=== PATIENT | female | born 1980 | race Caucasian/White ===

== ENCOUNTER 2016-11-17 22:03 | Inpatient (IN) ==
[2016-11-17] MEDS ORDERED: ALUM/MAG/SIMETH/LIDO VISC 1:1 30 ML BOTTLE PO STA (22:48)
[2016-11-17] MEDS ORDERED: SODIUM CHLORIDE 0.9% 500 ML IV STA (22:48)
[2016-11-17] MEDS ORDERED: HYDROmorphone 2 MG/1 ML VIAL IV STA (22:48)
[2016-11-17] MEDS ORDERED: KETOROLAC 30 MG/1 ML VIAL IV STA (22:48)
[2016-11-17] MEDS ORDERED: PANTOPRAZOLE 40 MG VIAL IV STA (22:48)
[2016-11-17] MEDS ORDERED: ONDANSETRON 4 MG/2 ML VIAL IV STA (22:48)
--- NOTE | 2016-11-17 22:52 | Emergency Department Note ---
Kyle Klein Rolonda, am scribing for, and in the presence of, Miah Aggarwal MD 22:50. Alessia Klein Charles R, MD, personally performed the services described in this documentation, ascribed by Benny Wright in my presence, and it is both accurate and complete 252 . Arrival - Arrival Chief Complaint: Abdominal / Flank Pain ED Nursing Triage Note: pt transferred from [facility], [place] for further evaluation of abnormal abdominal ct, possible strangulated hernia, cholelithiasis. 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 Pt states that the pain is more on the right side than left. She confirms having a nml BM and nausea but denies vomiting and having gas. No other complaint/pain in ED. Onset (ago): hour(s) Consistency: constant Severity: mild, moderate Severity scale (1-10): 4 Date of Last Menstrual Period: "2 weeks ago" Allergies/Adverse Reactions: Allergies Allergy/AdvReac Type Severity Reaction Status Date / Time Penicillins Allergy ITCHING Verified 11/17/16 22:10 Home Medications: Home Medications Medication Instructions Recorded Confirmed Type Citalopram [CeleXA] 20 mg PO DAILY 11/17/16 11/17/16 History clonazePAM TAB [KlonoPIN] 0.5 mg PO BID 11/17/16 11/17/16 History Review of System - Review of System 12 point system: reviewed and no additional remarkable complaints except as stated - Review of System Constitutional: Absent: chills Eyes: Absent: discharge Head/Ears/Nose/Throat: Absent: earache Respiratory: Absent: cough Cardiovascular: Absent: chest pain Gastrointestinal: Present: abdominal pain Musculoskeletal: Absent: arm pain Skin: Absent: rash Neurological: Absent: headache Psychiatric: Absent: anxiety Endocrine: Absent: cold intolerance Hematological/Lymphatic: Absent: easy bleeding Allergic/Immunologic: Absent: facial swelling Medical,Surgical,& Family Hx - Medical History Psychological: History of: Anxiety Disorders - Social History Smoking Status: Current every day smoker Frequency of Alcohol Use: None Type of Drug Use: None Exam Vital Signs: Vital Signs Temperature 99.5 F 11/17/16 22:03 Pulse Rate 97 H 11/17/16 22:03 Respiratory Rate 18 11/17/16 22:03 Blood Pressure 121/93 11/17/16 22:03 O2 Sat by Pulse Oximetry 100 11/17/16 22:03 - General General appearance: alert, in no apparent distress - Head Head exam: Present: atraumatic, normocephalic - Eye Eye exam: Present: PERRL, EOMI - ENT ENT exam: Present: mucous membranes moist. Absent: mucous membranes dry - Neck Neck exam: Present: full ROM. Absent: tenderness - Chest Chest inspection: Present: symmetric chest wall rise. Absent: tenderness - Respiratory Respiratory exam: Present: normal lung sounds bilaterally. Absent: wheezes - Cardiovascular Cardiovascular exam: Present: normal rhythm, tachycardia - Abdominal Exam Abdominal exam: Present: soft, tenderness (RUQ; mid abdominal), normal bowel sounds, diminished bowel sounds, Muniz's sign (positive) - Extremities Exam Extremities exam: Present: full ROM. Absent: tenderness - Back Exam Back exam: Present: full ROM. Absent: tenderness - Neurological Exam Neurological exam: Present: alert, oriented X3, CN II-XII intact - Psychiatric Psychiatric exam: Present: normal affect, normal mood - Skin Skin exam: Present: warm, dry, intact, normal color. Absent: rash Course - Consultations Consultation #1: Dr. Gomez will admit patient for acute cholecystitis Time: 23:50 Results - Labs CBC & BMP: 11/17/16 22:48 Lab Results: I have reviewed the patients labs Labs: Laboratory Tests 11/17/16 22:48 WBC 11.9 RBC 4.26 Hgb 13.0 Hct 39.3 - Diagnostic Findings Procedure: Ultrasound: image reviewed by me, report reviewed by me (Acute cholecystitis) Disposition Clinical Impression: Abdominal pain, Ventral wall hernia, Acute cholecystitis Case discussed with: patient, patient's family Disposition: Still a Patient Condition: Stable Time of Disposition: 23:52
--- NOTE | 2016-11-17 23:20 | Order Completion Report ---
See report scanned to EMR
[2016-11-17] MEDS ORDERED: PANTOPRAZOLE 40 MG VIAL IV ONE (23:22)
[2016-11-17] MEDS ORDERED: KETOROLAC 30 MG/1 ML VIAL ONE (23:22)
[2016-11-17] MEDS ORDERED: HYDROmorphone 2 MG/1 ML VIAL ONE (23:22)
[2016-11-17] MEDS ORDERED: ONDANSETRON 4 MG/2 ML VIAL ONE (23:22)
[2016-11-17] MEDS ORDERED: ALUM/MAG/SIMETH/LIDO VISC 1:1 30 ML BOTTLE PO ONE (23:23)
[2016-11-17 23:26] LABS: Basophils # 0.1 10*3/uL (0.0-0.2); Basophils % 0.7 % (0.0-0.8); Eosinophils # 0.3 10*3/uL (0.0-0.87); Eosinophils % 2.4 % (0.00-10.9); Hematocrit 39.3 VOL% (35.7-47.0); Immature Granulocytes % 0.6 %; Immature Granulocytes Absolute 0.07 #; Lymphocytes # 3.6 10*3/uL (1.4-4.0); Lymphocytes % 30.5 % (21.3-54.2); Mean Corpuscular HGB Conc 33.1 GM/DL (32-36); Mean Corpuscular Hemoglobin 31 PG (27-34); Mean Corpuscular Volume 92.3 FL (87-102); Mean Platelet Volume 11.5 FL (9.6-12.0); Monocytes # 0.8 10*3/uL (0.11-0.8); Monocytes % 6.6 % (1.7-12.7); Neutrophils % 59.2 % (38.7-73.9); Platelet Count 247 T/CUMM (130-400); Red Blood Count 4.26 MC/CUMM (3.8-5.5); Red Cell Distribution Width 14.6 % (9.3-17.3); White Blood Count 11.9 T/CUMM (4-12)
[2016-11-17 23:59] LABS: Lactic Acid 0.8 MMOL/L (0.4-2.0)
[2016-11-18 00:01] LABS: Alanine Aminotransferase 18 U/L (13-56); Albumin 3.3 G/DL (3.4-5.0); Alkaline Phosphatase 77 U/L (45-117); Amylase 48 U/L (25-115); Aspartate Amino Transferase 10 U/L (0-37); Bilirubin,Total < 0.39 MG/DL (0.2-1.0); Blood Urea Nitrogen 6 MG/DL (7-18); Calcium 8.7 MG/DL (8.5-10.1); Glucose 79 MG/DL (74-106); Osmolality,Calculated 275.4 MOS/KG (273-304); Potassium 3.8 MMOL/L (3.5-5.1); Sodium 140 MMOL/L (136-145); Total Protein 6.6 G/DL (6.4-8.3); Troponin I Only < 0.015 NG/ML (0.00-0.045)
[2016-11-18] MEDS ORDERED: ACETAMINOPHEN 325 MG TABLET PO PRN (00:50)
[2016-11-18] MEDS: LACTATED RINGERS 1,000 ML IV SCH ×3 (01:35→18:15)
[2016-11-18] MEDS: LEVOFLOXACIN INJ 750 MG in PREMIX 1 EACH IV SCH (01:36)
[2016-11-18] MEDS: ALBUTEROL/IPRATROPIUM 3 ML NEB RESP TX SCH ×4 (01:53→20:01)
[2016-11-18] MEDS: metroNIDAZOLE INJ 500 MG in PREMIX 1 EACH IV SCH ×3 (05:04→21:03)
[2016-11-18 05:38] LABS: Apearance,Urine CLEAR (Clear); Bacteria,Urine Occasional /HPF (Few); Bilirubin,Urine Negative (Negative); Blood, Urine Negative (Negative); Glucose,Urine (UA) Negative (Negative); Ketones,Urine Negative (Negative); Mucus,Urine Occasional /LPF (Occasional); Nitrite,Urine Negative (Negative); Protein,Urine Negative; RBC,Urine <1 /HPF (0-4); Squamous Epithelial Cell,Urine Occasional /HPF (0-10); Urine Color Yellow (Yellow); Urine Specific Gravity 1.035 (1.001-1.035); Urine Urobilinogen < 2.0 EU/DL (0.2-1.0); WBC,Urine <1 /HPF (0-6)
[2016-11-18 06:20] LABS: Basophils # 0.1 10*3/uL (0.0-0.2); Basophils % 0.7 % (0.0-0.8); Eosinophils # 0.2 10*3/uL (0.0-0.87); Eosinophils % 2.3 % (0.00-10.9); Hematocrit 40.9 VOL% (35.7-47.0); Hemoglobin 13.1 GM/DL (12.0-16.0); Immature Granulocytes % 0.8 %; Immature Granulocytes Absolute 0.07 #; Lymphocytes # 3.6 10*3/uL (1.4-4.0); Lymphocytes % 39.2 % (21.3-54.2); Mean Corpuscular Hemoglobin 30 PG (27-34); Mean Corpuscular Volume 93.6 FL (87-102); Mean Platelet Volume 11.5 FL (9.6-12.0); Monocytes # 0.7 10*3/uL (0.11-0.8); Monocytes % 7.3 % (1.7-12.7); Neutrophils # 4.6 10*3/uL (1.4-7.4); Neutrophils % 49.7 % (38.7-73.9); Platelet Count 262 T/CUMM (130-400); Red Blood Count 4.37 MC/CUMM (3.8-5.5); Red Cell Distribution Width 14.6 % (9.3-17.3); White Blood Count 9.2 T/CUMM (4-12)
[2016-11-18] MEDS: HYDROmorphone 2 MG/1 ML VIAL IV PRN ×4 (06:35→22:47)
--- NOTE | 2016-11-18 06:44 | Ultrasound Report ---
Right upper quadrant ultrasound Indication: Abdominal Pain Findings: The liver is normal in size with diffusely increased echogenicity. The gallbladder has multiple calculi present that were mobile. Small amount of sludge is seen. The gallbladder wall thickness is 2.0 mm . The common bile duct measures 4.0 mm. The visualized portion of the pancreas appear within normal limits The right kidney is normal in size and echogenicity and measures 8.7 cm . No free fluid or free air seen. Impression: Cholelithiasis, with slightly thickened gallbladder wall could indicate cholecystitis. No other evidence of abnormality demonstrated. Ultrasound images stored and captured. PROCEDURE INTERPRETED AT [facility] DEPARTMENT OF RADIOLOGY Final Report Signed by: Dr. Manuel Barney
[2016-11-18 07:04] LABS: Albumin 3.1 G/DL (3.4-5.0); Bilirubin,Total 0.6 MG/DL (0.2-1.0); Calcium 8.8 MG/DL (8.5-10.1); Osmolality,Calculated 274.4 MOS/KG (273-304); Potassium 4.5 MMOL/L (3.5-5.1); Total Protein 6.5 G/DL (6.4-8.3)
[2016-11-18] MEDS: ONDANSETRON 4 MG/2 ML VIAL IV PRN ×2 (07:40→18:19)
[2016-11-18] MEDS: PANTOPRAZOLE 40 MG VIAL IV SCH (07:40)
--- NOTE | 2016-11-18 08:23 | General Surg History&Physical ---
Assessment and Plan (1) Acute cholecystitis Status: Acute Assessment and plan: Patient with apparent acute cholecystitis. She has received perioperative IV antibiotics and we recommended proceeding with a laparoscopic cholecystectomy today. All questions were welcomed and answered and the patient agrees to proceed. Current Visit: Yes (2) Ventral hernia Status: Acute Assessment and plan: Patient's current primary symptoms are reflective of the above. Will follow. Current Visit: Yes (3) Constipation Status: Acute Assessment and plan: Patient reports bowel movement this morning. Monitor. Current Visit: Yes (4) Pulmonary nodule Status: Acute Assessment and plan: Incidental finding of pulmonary nodules with recommendation by radiologist for repeat CT scan in 6 months. Current Visit: Yes (5) Nicotine dependence Status: Acute Assessment and plan: Smoking cessation education provided. Risks of continuing tobacco use and health benefits of cessation reviewed. We will provide additional information upon discharge. Current Visit: Yes Qualifiers: Nicotine product type: cigarettes History of Present Illness Chief complaint: Abdominal pain History of present illness: Ms. Child is a 35 year old female to an outside facility yesterday with significant right upper quadrant abdominal pain associated with nausea without vomiting. She reports the pain was severe in the right upper quadrant and persistent prompting her visit; denies associated fever, chills, riders, diarrhea, or urinary symptoms. She reports a history of nausea and milder right upper quadrant pain after fatty meals over the past several months, but she had limited fried foods in her diet to compensate. No previous evaluation. Home Medications Medication Instructions Recorded Confirmed Type Citalopram [CeleXA] 20 mg PO DAILY 11/17/16 11/18/16 History clonazePAM TAB [KlonoPIN] 0.5 mg PO BID 11/17/16 11/18/16 History Allergies Allergy/AdvReac Type Severity Reaction Status Date / Time Penicillins Allergy ITCHING Verified 11/17/16 22:10 Medical,Surgical,& Family Hx - Medical History Psychological: History of: Anxiety Disorders - Surgical History HEENT Surgeries: Surgical HX of: Tonsilectomy & Adenoidectomy Reproductive Surgeries: Surgical HX of;: Section, Tubal Ligation Orthopedic Surgeries: Surgical HX of;: Orthopedic Surgery (shoulder) - Family History Family History: Reports;: Family Heart Disease, Family Hypertension - Social History Smoking Status: Current every day smoker Frequency of Alcohol Use: None Type of Drug Use: None Exam - Constitutional Vitals: Period Temp Pulse Resp BP Sys/Mahmood Pulse Ox Last 24 Hr 97.2 F-99.5 F 80-97 12-20 99-128/75-93 98-100 General appearance: no acute distress, over weight - Head Head exam: Present: atraumatic - Eye Eye exam: Absent: scleral icterus - Neck Neck exam: Present: trachea midline - Respiratory Respiratory exam: Present: clear to auscultation bilaterally - Cardiovascular Cardiovascular exam: Present: RRR - GI/Abdominal GI/Abdominal exam: Present: normal bowel sounds, Muniz's sign, tenderness ( Right upper quadrant tenderness), soft. Absent: firm, guarding - Extremities Exam Extremities exam: Absent: calf tenderness, edema - Neurological Exam Neurological exam: Present: alert, oriented X3 Speech: Present: normal - Skin Skin exam: Present: normal color - Constitutional Constitutional: Present: as per HPI - Cardiovascular Cardiovascular: Absent: chest pain at rest, orthopnea - Respiratory Respiratory: Absent: cough, hemoptysis, wheezing - Gastrointestinal Gastrointestinal: Present: as per HPI - Genitourinary Genitourinary: Absent: dysuria, flank pain Hematologic/Lymphatic: Absent: easy bleeding, easy bruising Quality Measures - VTE Contraindication to Pharmacological VTE Prophylaxis: High Risk of Bleeding Results - Labs CBC & BMP: 11/18/16 05:24 11/18/16 05:24 Lab Results: I have reviewed the past 24 hour labs Labs: LFTs unremarkable Lipase unremarkable Lactic acid unremarkable Troponin unremarkable - EKG EKG results: interpreted by ERMD - Diagnostic Findings Procedure: Abdominal Flat/Erect: image reviewed by me (Results pending this morning), Chest x-ray: image reviewed by me (Results pending this morning), CT Abdomen and Pelvis: image reviewed by me, report reviewed by me (Outside images reviewed independently reviewed by Dr. Gomez; cholelithiasis and gallbladder wall thickening noted; ventral pelvic hernia also noted; pulmonary nodule noted on report from outside facility)
--- NOTE | 2016-11-18 08:44 | XRay Report ---
XR chest 2V Indication: Shortness of breath Comparison: 17 November 2016 Findings: The heart and mediastinum are normal in size and configuration. The pulmonary vascularity is normal in caliber. No lung infiltrates, effusions, pneumothorax or other abnormality is demonstrated. Impression: Normal chest x-ray PROCEDURE INTERPRETED AT [facility] DEPARTMENT OF RADIOLOGY Final Report Signed by: Dr. Manuel Barney
--- NOTE | 2016-11-18 08:45 | XRay Report ---
XR abdomen 2V Indication: Abdominal pain Comparison: None available Findings: No free fluid or free air seen. Increased stool volume is seen in the colon. The bowel gas pattern otherwise appears within normal limits. No abnormal calcifications are present. No other abnormality is identified. Impression: Increased stool volume in the colon, may indicate constipation. PROCEDURE INTERPRETED AT [facility] DEPARTMENT OF RADIOLOGY Final Report Signed by: Dr. Manuel Barney
[2016-11-18] MEDS: clonazePAM 0.5 MG TABLET PO SCH ×2 (13:44→21:02)
[2016-11-18] MEDS: CITALOPRAM 20 MG TABLET PO SCH (13:44)
[2016-11-18] MEDS ORDERED: TISSUE ADHESIVE 1 EACH APPLICATOR TOP ONE (13:55)
[2016-11-18] MEDS ORDERED: LIDOCAINE 1%/EPI INJ 20 ML VIAL ONE (13:55)
[2016-11-18] MEDS ORDERED: BUPIVACAINE 0.25% 50 ML VIAL ONE (13:55)
--- NOTE | 2016-11-18 15:32 | Operative Note ---
Date of procedure: 11/18/16 Pre-op diagnosis: Acute cholecystitis Post-op diagnosis: same Procedure: Procedure performed laparoscopic cholecystectomy with intraoperative cholangiogram Procedure in detail: After informed consent was obtained, patient was taken operating suite lies upon the operating table. After general anesthesia was induced abdomen was prepped and draped in usual sterile fashion. After procedural pause local anesthetic infiltrated the skin and subcutaneous tissue just above the umbilicus. Incision made and dissection carried down to the fascia which was grasped with Bolton's and elevated. Fascial incision was made in the abdominal cavity was entered bluntly. Finger sweep revealed no adhesions. Nguyen trocar placed under direct visualization. Pneumoperitoneum was achieved. The camera inserted bowel mesentery inspected and found to be free of any violation. Next the patient was placed in reverse Trendelenburg position rotated to the left. 2 5 mm trochars were placed in the right upper quadrant 11 mm subxiphoid trocar was placed all under visualization. The gallbladder identified. It was acutely edematous and thickened the. It was grasped and elevated. Infundibulum the gallbladder retracted toward the right hip. Dissection was carried out from lateral to medial approach and the triangle of Virgil and the cystic duct and cystic artery were identified and isolated. Using a critical view technique these only 2 structures entering the gallbladder. Because of the inflammation in this area the cystic artery was thickened and because of the angle of the instruments I was unable to place a clip on the cystic duct until the artery was transected. The cystic artery was triple clipped and transected exposing the angle needed to place a clip on the junction of the cystic duct and neck of the gallbladder. This was done but the cystic duct was very dilated and the clip did not completely traverse it. Partial transection made on the cystic duct and multiple stones were evacuated out of the cystic duct and cholangiocatheter was inserted and secured in place. Intraoperative cholangiogram performed but there appeared to be retrograde filling around the catheter into the gallbladder. May be a noticed on lodged in the cystic duct but I was unable to palpate any such with the trocar. The cholangiocatheter was removed and 2 clips placed across the cystic duct just distal to the partial transection the transection completed. However the did not completely traverse all of the cystic duct tissue. An Endoloop was placed around the cystic duct stump. The gallbladder was then removed from the gallbladder fossa using hook cautery and placed in Endo Catch sac removed to the Nguyen trocar site. Pneumoperitoneum reachieved and right upper quadrant thoroughly irrigated and suction. The clips were inspected found to be intact with no leakage of bilious or sanguinous fluid. There is good hemostasis. The trochars were removed as the abdomen desufflated. Fascia at the Nguyen trocar site closed using 0 Vicryl [id number] interrupted suture. Wounds thoroughly irrigated and suctioned. Incision closed with nelson. Sterile dressings applied. Patient was explained taken recovery room in stable condition. All lap and needle counts correct in the case. Anesthesia: GETA Surgeon / Physician: Cruz Gomez Estimated blood loss: other (Less than 10 cc) Specimens: other (Gallbladder) Condition: stable Disposition: PACU Results - Labs CBC & BMP: 11/18/16 05:24 11/18/16 05:24 Discharge Plan - Discharge Medications No Action clonazePAM TAB [KlonoPIN] 0.5 mg PO BID Citalopram [CeleXA] 20 mg PO DAILY - Follow Up or Referral - Forms/Instructions
[2016-11-18] MEDS ORDERED: PROPOFOL 200 MG/20 ML VIAL IV ONE (15:46)
[2016-11-18] MEDS ORDERED: ONDANSETRON 4 MG/2 ML VIAL ONE (15:47)
[2016-11-18] MEDS ORDERED: fentaNYL 100 MCG/2 ML VIAL ONE (15:47)
[2016-11-18] MEDS ORDERED: MIDAZOLAM 2 MG/2 ML VIAL ONE (15:47)
[2016-11-18] MEDS ORDERED: DEXAMETHASONE 10 MG/1 ML VIAL ONE (15:47)
[2016-11-18] MEDS ORDERED: SEVOFLURANE 1 UNIT/15 MINUTE INH ONE (15:47)
[2016-11-18] MEDS ORDERED: GLYCOPYRROLATE 0.4 MG/2 ML VIAL ONE (15:47)
[2016-11-18] MEDS ORDERED: NEOSTIGMINE 10 MG/10 ML VIAL ONE (15:47)
[2016-11-18] MEDS ORDERED: ROCURONIUM 100 MG/10 ML VIAL IV ONE (15:48)
--- NOTE | 2016-11-18 16:37 | Fluoroscopy Report ---
Cholangiogram November 18, 2016 Indication: Right upper quadrant pain, postcholecystectomy Comparison: No relevant comparisons Technique: Interoperative cholangiogram was performed in routine fashion after cannulation of the cystic duct. Fluoroscopy time recorded at 45 seconds. Radiation dose was calculated Findings: Multiple attempts were made to cannulize the cystic duct. No reflux of contrast into the biliary ductal system. Pooling of contrast at the surgical site. Impression: Unsuccessful cholangiogram PROCEDURE INTERPRETED AT [facility] DEPARTMENT OF RADIOLOGY Final Report Signed by: Chu Wasserman MD
--- NOTE | 2016-11-18 17:49 | Anesthesia Post-Op ---
Anesthesia Post OP - Post Ansesthetic Evaluation Patient seen in post op: Yes Resp: within normal limits CV: within normal limits Mental: within normal limits Temp: within normal limits Owxo-De-[id number]: within normal limits Nausea and Vomiting: within normal limits Pain: within normal limits
[2016-11-19] MEDS: ALBUTEROL/IPRATROPIUM 3 ML NEB RESP TX SCH ×2 (00:06→07:10)
[2016-11-19] MEDS: LACTATED RINGERS 1,000 ML IV SCH (00:56)
[2016-11-19] MEDS: LEVOFLOXACIN INJ 750 MG in PREMIX 1 EACH IV SCH (02:05)
[2016-11-19 04:39] LABS: Albumin 2.8 G/DL (3.4-5.0); Bilirubin,Direct 0.12 MG/DL (0.0-0.20); Bilirubin,Indirect 0.8 MG/DL (0.0-1.0); Bilirubin,Total 0.9 MG/DL (0.2-1.0); Total Protein 6.1 G/DL (6.4-8.3)
[2016-11-19] MEDS: HYDROmorphone 2 MG/1 ML VIAL IV PRN (05:26)
[2016-11-19] MEDS: metroNIDAZOLE INJ 500 MG in PREMIX 1 EACH IV SCH ×2 (05:28→12:22)
[2016-11-19] MEDS: ONDANSETRON 4 MG/2 ML VIAL IV PRN (06:45)
--- NOTE | 2016-11-19 07:55 | Event Note ---
Status post laparoscopic cholecystectomy. Doing well. No complaints. She is tolerating a diet. Her pain is well controlled. Her abdomen is soft appropriately tender and nondistended. There is no bleeding or erythema. She is in regular close and wants to go home today. Labs okay. Plan for discharge today and I will see her in 2 weeks. Discharge instructions were given. Patient instructed to call for any nausea vomiting worsening abdominal pain fever, redness drainage from incisions, chest pain shortness of breath, jaundice , any other concern
[2016-11-19] MEDS ORDERED: oxyCODONE/ACETAMINOPHEN 5-325 MG TABLET PO PRN (09:18)
[2016-11-19] MEDS: CITALOPRAM 20 MG TABLET PO SCH (09:37)
[2016-11-19] MEDS: clonazePAM 0.5 MG TABLET PO SCH (09:37)
[2016-11-19] MEDS: PANTOPRAZOLE 40 MG VIAL IV SCH (09:39)
--- NOTE | 2016-11-19 10:00 | Discharge Summary ---
Hospital Course - Hospital Course Hospital Course: Patient is a 35-year-old female smoker with no significant past medical history admitted for laparoscopic cholecystectomy for acute cholecystitis. She received perioperative IV antibiotics. Her postoperative course was uneventful. She was tolerating oral intake, activity, voiding, and passing flatus without difficulty the time of discharge. Oral analgesics were changed from Coats to Percocet. She was discharged home in good condition with postoperative instructions and a follow-up appointment. No complications to note. Incidental finding of pulmonary nodule: Patient is recommended to follow-up in [address] scan of the chest with contrast. Ventral pelvic hernia was also incidentally identified. 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 Incidental finding of fatty liver: Education provided. Follow with PCP for monitoring is warranted and/or gastroenterology referral is warranted. Nicotine dependence: The patient was provided with information on smoking cessation. Diagnosis - Discharge Diagnosis (1) Acute cholecystitis Status: Acute (2) Ventral hernia Status: Acute (3) Constipation Status: Acute (4) Pulmonary nodule Status: Acute (5) Nicotine dependence Status: Acute Specialty Discharge - Follow Up or Referrals Follow up with: Cruz Gomez MD [Physician] - 12/02/16 9:00 am Discharge Plan - Discharge Data Disposition: Disch To Home/Self Care Condition at Discharge: Stable Discharge Diet: advance to your usual diet Activity: no lifting (Greater than 10 pounds) Hygiene: may shower Driving: other (No driving while taking narcotic) Contact your physician if you experience:: fever over 101, Difficulty voiding, Redness or swelling, Nausea/Vomiting, Shortness of breath, Bleeding, pain uncontrolled by pain medications Wound / Dressing Care Instructions: Keep surgical incisions clean, dry and covered. Do not soak or submerge wounds. Notify office with erythema, drainage , or increased pain associated with the incisions. - Discharge Medications New oxyCODONE/ACETAMINOPHEN 5-325 [Percocet 5-325] 1 tablet PO Q4H PRN #30 tablet PRN Reason: Pain Moderate To Severe (4-10) Continue clonazePAM TAB [KlonoPIN] 0.5 mg PO BID Citalopram [CeleXA] 20 mg PO DAILY - Follow Up or Referral Follow Up: Cruz Gomez MD [Physician] - 12/02/16 9:00 am - Forms/Instructions Instructions: Laparoscopic Cholecystectomy (DC), How to Stop Smoking (DC), Non- Alcoholic Fatty Liver Disease (GEN) Additional Discharge Instructions: -F/u CT scan of chest in 6 months re: pulmonary nodules. 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 -F/u PCP re : hepatic steatosis Exam - Constitutional Vitals: Period Temp Pulse Resp BP Sys/Mahmood Pulse Ox Last 24 Hr 97.3 F-98.0 F 54-102 12-20 103-129/54-95 94-100 General appearance: no acute distress - Respiratory Respiratory exam: Present: clear to auscultation bilaterally - Cardiovascular Cardiovascular exam: Present: regular rate and rhythm - GI/Abdominal GI/Abdominal exam: Present: hypoactive bowel sounds, tenderness (Appropriate postoperative), soft, other (Surgical incisions are clean, dry and intact). Absent: distended - Extremities Exam Extremities exam: Absent: calf tenderness, edema - Neurological Exam Neurological exam: Present: alert, oriented X3 - Psychiatric Psychiatric exam: Present: normal affect, normal mood - Skin Skin exam: Present: normal color Discharge Results Labs on day of discharge: Labs from last 24 hours 11/19/16 02:50 Total Bilirubin 0.90 Direct Bilirubin 0.120 Indirect Bilirubin 0.8 AST 57 H ALT 59 H Alkaline Phosphatase 81 Total Protein 6.1 L Albumin 2.8 L - Imaging and Cardiology Procedure: Ultrasound: report reviewed by me (Gallbladder ultrasound revealed cholelithiasis with slightly thickened gallbladder wall; CBD measured 4 mm) - Additional Comments CT scan from outside facility inability reviewed by Dr. Gomez as well as the report. There were findings of #1 fatty liver #2 gallbladder wall thickening 3. Moderate fecal and large bowel 4. Right ventral pelvic wall hernia 5. 7 8 mm right lower lobe pulmonary nodule; recommendations for follow-up scanning by radiologist made DS: Provider Date of admission: 11/17/16 23:52 Primary care physician: Ramón Coy Attending physician on admission: Cruz Gomez MD Consults: 11/18/16 00:50 Consult to Case Mgmt/Social Srvs [CONS] Routine Reason for Case Mgmt/Social Srvs: Rehab Other Consult Comment: Home situation Discharging clinician: Melida Logan PA-C
[2016-11-19 11:37] VITALS: BP 131/78
--- NOTE | 2016-11-22 11:16 | Pathology Report from [facility] ---
[facility] [place] ACCESSION # : [id number] PATIENT NAME : Luis Antonio Espinoza ORDERING DR : Cruz Gomez MD CLINICAL HX: Acute cholecystitis POST-OP DX: Same SPECIMEN INFO: Gallbladder GROSS DESCRIPTION: Received in formalin labeled LUIS ANTONIO ESPINOZA is an intact gallbladder measuring 6.5 x 2.2 cm. The serosa is smooth jose archibald. The gallbladder wall has a thickness of 0.8 cm. The mucosa is dull light archibald. The mucosa is bile stained green. The lumen contains viscous and mucoid green bile with a few light brown stone fragments measuring from <0.1 cm to 0.2 cm. Stones are located with in the area of the cystic duct. Toll Collector Supervisor sections are submitted in one cassette. DIAGNOSIS FOR LUIS ANTONIO ESPINOZA: GALLBLADDER: Acute and chronic cholecystitis. Cholelithiasis. No evidence of malignancy. COLLECTED DATE: 11/19/2016 [facility] REPORT DATE: 11/22/2016 ELECTRONICALLY SIGNED BY: Elsie Torres III, M.D. 11/22/2016 - 10:20:14 JARETH
--- NOTE | 2016-11-23 08:34 | Physician Query Form ---
CLICK EDIT DOCUMENT TO SELECT QUERY ANSWER --> OK --> SIGN Marina Lama RN Clinical Government Minister W) [phone] (f) [phone] [email or web address]: Make your selection(s) from the choices in EACH section by typing an "x" and enter comments in the comment section. Please use your independent medical judgment in providing your response. This request does not imply that any particular answer is desired or expected. CLINICAL INDICATORS: (Providers should not edit this section) Pt. admitted with acute cholecystitis and had a laparoscopic cholecystectomy with intraoperative cholangiogram. Pathology report states "Acute and chronic cholecystitis. Cholelithiasis". Please clarify if you agree with the pathology findings. Pathology Findings: Acute and chronic cholecystitis. Cholelithiasis Abnormal Pathology findings are not reported unless an authorized provider indicates their clinical significance Please select the best choice: (x ) I agree with the Pathology findings ( ) I disagree with the Pathology findings ( ) No clinical significance ( ) Other/clarification of findings, please specify: ( ) Clinically unable to determine COMMENTS: PLEASE ALSO DOCUMENT RESPONSE IN PROGRESS NOTES AND/OR DISCHARGE SUMMARY Use of terms such as suspected, likely, or probable (associated with a specific diagnosis that is being evaluated, monitored, or treated as if it exists) are acceptable and can be restated in the discharge summary if not ruled out. MTDD
== END 2016-11-19 12:50 | disposition home or self-care (01) | DRG 263 ==
LOC: EDUNIT# → EDBD → N.ED 22:03 → N.EDINP 23:52 → N.3E 11-18 00:54
PROVIDERS: ADMIT Surgery; ATTEND Surgery
PROC: LAPCHOL (2016-11-18 14:32)